=== PATIENT | female | born 1980 | race Two or more races ===

== ENCOUNTER → 2017-01-24 | Outpatient (CLI) | payer BC | LOC: OD 14:55 | PROVIDERS: ATTEND Physician Assistant | DX: L70.8 Other acne (principal) | CPT/HCPCS: 36415; 84132 ==

== ENCOUNTER → 2017-04-07 | Outpatient (CLI) | payer BC | LOC: OD 16:24 | PROVIDERS: ATTEND Physician Assistant | DX: L70.8 Other acne (principal) | CPT/HCPCS: 36415; 84132 ==